=== PATIENT | female | born 1975 | race Caucasian/White ===

== ENCOUNTER 2017-02-05 11:01 | Emergency (ER) | payer MEDICAID ==
[2017-02-05 11:11] VITALS: BMI 28.0
[2017-02-05 11:12] VITALS: RESP 18; TEMP 98.4
[2017-02-05] MEDS ORDERED: Lidocaine 5% Patch TD STA (11:45)
[2017-02-05] MEDS ORDERED: Dexamethasone 4 mg/1 ml IM STA (11:45)
[2017-02-05] MEDS ORDERED: Lidocaine 5% Patch TD ONE (11:54)
--- NOTE | 2017-02-05 11:56 | C.PDOC ---
History Of Present Illness 42 year old female with a history of chronic back and neck problems, presents to the ED with complaints of upper back pain for the past week. Patient states she took Tramadol and Flexeril with no relief and denies fall, trauma, chest pain, abdominal pain, numbness, weakness, or any other complaints at this time. Time Seen by Provider: 02/05/17 11:26 Chief Complaint (Nursing): Back Pain History Per: Patient History/Exam Limitations: no limitations Onset/Duration Of Symptoms: Days Current Symptoms Are (Timing): Still Present Quality Of Discomfort: "Pain" Severity: Mild Previous Symptoms: Back Pain Associated Symptoms: None. denies: Incontinence, New Weakness, New Numbness Exacerbating Factor(s): Turning, Movement Past Medical History Reviewed: Historical Data, Nursing Documentation, Vital Signs Vital Signs: Last Vital Signs Temp 98.4 F 02/05/17 11:11 Pulse 60 02/05/17 12:54 Resp 18 02/05/17 12:54 BP 115/72 02/05/17 12:54 Pulse Ox 100 02/05/17 12:54 - Medical History PMH: Anemia, Asthma, HTN, Hyperthyroidism, Hypothyroidism Surgical History: Family History: States: Hypertension - Social History Hx Tobacco Use: Yes Hx Alcohol Use: Yes Hx Substance Use: No - Immunization History Hx Tetanus Toxoid Vaccination: Yes Hx Influenza Vaccination: Yes (06/2015) Hx Pneumococcal Vaccination: No Review Of Systems Except As Marked, All Systems Reviewed And Found Negative. Constitutional: Negative for: Fever, Chills Cardiovascular: Negative for: Chest Pain Respiratory: Negative for: Shortness of Breath Gastrointestinal: Negative for: Nausea, Vomiting, Abdominal Pain Musculoskeletal: Positive for: Back Pain Neurological: Negative for: Weakness, Numbness Physical Exam - Physical Exam Appears: Non-toxic, No Acute Distress Skin: Normal Color, Warm, Dry Head: Atraumatic, Normacephalic Eye(s): bilateral: Normal Inspection Oral Mucosa: Moist Neck: Normal ROM, Paracervical Tenderness (+Right paracervical tenderness), Supple Chest: Symmetrical Cardiovascular: Rhythm Regular, No Friction Rub, No Murmur Respiratory: Normal Breath Sounds, No Accessory Muscle Use, No Rales, No Rhonchi , No Wheezing Gastrointestinal/Abdominal: Normal Exam, Soft, No Tenderness Back: No CVA Tenderness, No Vertebral Tenderness, Paraspinal Tenderness (+Right parathoracic tenderness) Extremity: Normal ROM, No Swelling Neurological/Psych: Oriented x3, Normal Speech, Normal Cognition, Normal Motor Gait: Steady ED Course And Treatment O2 Sat by Pulse Oximetry: 99 (Room air) Pulse Ox Interpretation: Normal Medical Decision Making Medical Decision Making: Patient treated with Decadron, Toradol, and Lidoderm patch. On re-exam, the patient reports improvement of symptoms. Ambulatory in the ED with steady gait. Lungs are CTA, heart is RRR, abdomen is soft, non-tender and tolerating PO well. Disposition - Disposition Referrals: Eric Carreon MD [Medical Doctor] - Disposition: HOME/ ROUTINE Disposition Time: 13:00 Condition: STABLE Additional Instructions: Follow up with the medical doctor within 1-2 days. 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 - Scribe Statement The provider has reviewed the documentation as recorded by the Scribe Geo castro. All medical record entries made by the Scribe were at my direction and personally dictated by me. I have reviewed the chart and agree that the record accurately reflects my personal performance of the history, physical exam, medical decision making, and the department course for this patient. I have also personally directed, reviewed, and agree with the discharge instructions and disposition.
[2017-02-05 12:55] VITALS: BP 115/72; PULSE 60
[2017-02-06 00:05] VITALS: O2SAT 99
== END 2017-02-05 13:07 | disposition home or self-care (01) ==
LOC: C.ER 11:01
DX: S29.012A Strain of muscle and tendon of back wall of thorax, initial encounter (principal); X58.XXXA Exposure to other specified factors, initial encounter; Y93.9 Activity, unspecified; Y92.9 Unspecified place or not applicable
CPT/HCPCS: 96372; 99284; J1100; J1885

== ENCOUNTER 2017-10-01 12:48 | Emergency (ER) | payer MEDICAID ==
[2017-10-01 12:48] VITALS: BMI 28.0
[2017-10-01 13:14] VITALS: TEMP 98; O2SAT 98
[2017-10-01] MEDS ORDERED: Albuterol 0.083% Inhal Sol (2.5 mg/3 mL) UD IH STA (13:21)
[2017-10-01] MEDS ORDERED: Albuterol 0.083% Inhal Sol (2.5 mg/3 mL) UD ONE (13:31)
[2017-10-01] MEDS ORDERED: Apap-Butalbital-Caffeine 325-50-40mg Tab PO STA (13:33)
[2017-10-01] MEDS ORDERED: Apap-Butalbital-Caffeine 325-50-40mg Tab ONE (13:41)
--- NOTE | 2017-10-01 13:56 | C.PDOC ---
History Of Present Illness 42 y/o female presents to ED for evaluation of productive cough with yellow sputum, shortness of breath, and wheezing for the past week. Notes using Albuterol at home without relief. Pt also complains of left sided headache which feels similar to her previous migraines. Denies dizziness, chest pain, or fever. Time Seen by Provider: 10/01/17 13:02 Chief Complaint (Nursing): Cough, Cold, Congestion History Per: Patient History/Exam Limitations: no limitations Onset/Duration Of Symptoms: Days Current Symptoms Are (Timing): Still Present Location Of Pain: Headache Sick Contacts (Context): Family Member(s) (daughter) Associated Symptoms: Cough, Sputum. denies: Neck Pain, Sinus Drainage, Myalgias , Nausea, Vomiting, Diarrhea Ear Symptoms: Bilateral: None Past Medical History Reviewed: Historical Data, Nursing Documentation, Vital Signs Vital Signs: Last Vital Signs Temp 98 F 10/01/17 13:08 Pulse 82 10/01/17 13:08 Resp 18 10/01/17 13:08 BP 103/67 10/01/17 13:08 Pulse Ox 98 10/01/17 14:03 - Medical History PMH: Anemia, Asthma, HTN, Hyperthyroidism, Hypothyroidism Surgical History: Family History: States: Hypertension - Social History Hx Tobacco Use: Yes Hx Alcohol Use: Yes Hx Substance Use: No - Immunization History Hx Tetanus Toxoid Vaccination: Yes Hx Influenza Vaccination: Yes (06/2015) Hx Pneumococcal Vaccination: No Review Of Systems Except As Marked, All Systems Reviewed And Found Negative. Constitutional: Negative for: Fever, Chills Cardiovascular: Negative for: Chest Pain Respiratory: Positive for: Cough, Shortness of Breath, Sputum, Wheezing Gastrointestinal: Negative for: Nausea, Vomiting Neurological: Positive for: Headache. Negative for: Weakness, Numbness, Dizziness Physical Exam - Physical Exam Appears: Non-toxic, No Acute Distress Skin: Normal Color, Warm, Dry Head: Atraumatic, Normacephalic Eye(s): bilateral: Normal Inspection Ear(s): Bilateral: Normal Nose: Normal Oral Mucosa: Moist Throat: Normal, No Erythema, No Exudate Neck: Supple Chest: Symmetrical Cardiovascular: Rhythm Regular, No Murmur Respiratory: No Accessory Muscle Use, No Rales, No Rhonchi, Wheezing (mild expiratory wheezing bilaterally), Other (pt speaking in full sentences, occasional cough) Extremity: Normal ROM, No Pedal Edema Neurological/Psych: Oriented x3, Normal Speech ED Course And Treatment O2 Sat by Pulse Oximetry: 98 (RA) Pulse Ox Interpretation: Normal Progress Note: CXR ordered and reviewed. Pt was given Prednisone, Fioricet, and nebulizer treatment. On reassessment, patient is resting comfortably with no chest pain, or retractions. Breath sounds have improved. Patient is alert and oriented x 3. Patient was advised to follow up with physician/clinic in 1- 2 days and return to ED if symptoms worsen or persist. Disposition Counseled Patient/Family Regarding: Studies Performed, Diagnosis, Need For Followup, Rx Given - Disposition Referrals: Jayden Camacho [Staff Provider] - Disposition: HOME/ ROUTINE Disposition Time: 14:10 Condition: STABLE Additional Instructions: SEGUIMIENTO CON FAGAN MDICO EN 1-2 DUNNE USE MEDICAMENTOS SEGN LO INDICADO REGRESE AL PITO DE EMERGENCIA SI LOS SNTOMAS EMPEORAN Prescriptions: Albuterol HFA [Ventolin HFA 90 mcg/actuation (8 g)] 0.09 mg IH Q4 PRN #1 puff PRN Reason: Wheezing Benzonatate [Tessalon Perles] 100 mg PO BID PRN #15 sgl PRN Reason: Cough predniSONE [predniSONE Tab] 40 mg PO DAILY #8 tab Instructions: Asthma (ED), Acute Bronchitis (ED) Forms: [employer] (Mohawk) Print Language: LUXEMBOURGISH - POA Present On Arrival: None - Clinical Impression Clinical Impression: Bronchitis, Asthma - Scribe Statement The provider has reviewed the documentation as recorded by the Hernanibhimanshu Kaufman All medical record entries made by the Scribe were at my direction and personally dictated by me. I have reviewed the chart and agree that the record accurately reflects my personal performance of the history, physical exam, medical decision making, and the department course for this patient. I have also personally directed, reviewed, and agree with the discharge instructions and disposition.
[2017-10-01] MEDS ORDERED: Naproxen 550 mg Tab PO STA (14:16)
--- NOTE | 2017-10-01 14:19 | RAD ---
HISTORY: COUGH, SOB COMPARISON: 01/14/2015 TECHNIQUE: Chest PA and lateral FINDINGS: LUNGS: Mild venous congestion. Small nodular density projecting over the right upper lung may represent a small granuloma and or nodule. This is stable since the prior study. PLEURA: No significant pleural effusion identified. No pneumothorax apparent. CARDIOVASCULAR: Normal. OSSEOUS STRUCTURES: No significant abnormalities. VISUALIZED UPPER ABDOMEN: Normal. OTHER FINDINGS: None. IMPRESSION: Mild venous congestion. Small nodular density projecting over the right upper lung may represent a small granuloma and or nodule. This is stable since the prior study.
[2017-10-01] MEDS ORDERED: Naproxen 550 mg Tab PO ONE (14:20)
[2017-10-01 14:21] VITALS: BP 110/70; PULSE 75; RESP 20
== END 2017-10-01 14:35 | disposition home or self-care (01) ==
LOC: C.ER 12:48
DX: J45.909 Unspecified asthma, uncomplicated (principal); I10 Essential (primary) hypertension; Z87.891 Personal history of nicotine dependence

== ENCOUNTER 2017-11-09 09:09 | Emergency (ER) | payer MEDICAID ==
[2017-11-09 09:09] VITALS: BMI 28.0
--- NOTE | 2017-11-09 11:05 | C.PDOC ---
History Of Present Illness 42 y/o female hx of 2 day fever, sore , throat, non productive cough, body aches, and back pain from the cough. The patient notes feeling warm but has not taken temperature. The patient denies chills, sweats, and dizziness. Time Seen by Provider: 11/09/17 09:40 Chief Complaint (Nursing): ENT Problem History Per: Patient Onset/Duration Of Symptoms: Days Current Symptoms Are (Timing): Still Present Associated Symptoms: Fever, Sore Throat, Cough Past Medical History Reviewed: Historical Data, Nursing Documentation, Vital Signs Vital Signs: Last Vital Signs Temp 99.2 F 11/09/17 11:17 Pulse 97 H 11/09/17 11:17 Resp 18 11/09/17 11:16 BP 148/89 11/09/17 11:17 Pulse Ox 99 11/09/17 11:56 - Medical History PMH: Anemia, Asthma, HTN, Hyperthyroidism, Hypothyroidism Surgical History: Family History: States: No Known Family Hx, Hypertension - Social History Hx Tobacco Use: Yes Hx Alcohol Use: Yes Hx Substance Use: No - Immunization History Hx Tetanus Toxoid Vaccination: Yes Hx Influenza Vaccination: Yes (03/2017) Hx Pneumococcal Vaccination: No Review Of Systems Except As Marked, All Systems Reviewed And Found Negative. Constitutional: Positive for: Fever. Negative for: Chills ENT: Positive for: Throat Pain Cardiovascular: Negative for: Chest Pain Respiratory: Positive for: Cough (nonproductive ) Gastrointestinal: Negative for: Nausea, Vomiting Physical Exam - Physical Exam Appears: Non-toxic, No Acute Distress Skin: Warm, Dry Head: Atraumatic, Normacephalic Oral Mucosa: Moist Throat: Erythema (tonsillar), No Exudate Neck: Supple Chest: Symmetrical Cardiovascular: Rhythm Regular Extremity: Normal ROM, Capillary Refill (2<sec.) Neurological/Psych: Oriented x3, Normal Speech, Normal Cognition Gait: Steady ED Course And Treatment O2 Sat by Pulse Oximetry: 99 (RA) Progress Note: The patient is afebrile and positive for bronchitis. The patient is RX zithromax,naprocilin. The patient is advised if symptoms worsens to return to the [facility] [place] for further evaluation. Disposition Counseled Patient/Family Regarding: Diagnosis, Need For Followup, Rx Given - Disposition Referrals: [facility] [Outside] Disposition: HOME/ ROUTINE Disposition Time: 11:03 Condition: STABLE Additional Instructions: follow up with medical clinic or your doctor in 2 days call to make an appointment take medications as prescribed return to hospital if symptoms worsens or progress Prescriptions: Azithromycin [Zithromax] 250 mg PO DAILY #4 tab Naproxen [Naprosyn] 500 mg PO BID PRN #16 tab PRN Reason: Pain, Moderate (4-7) Instructions: Acute Bronchitis (ED) Forms: [facility] (Lao), General Discharge Instructions - Clinical Impression Clinical Impression: Pharyngitis, Bronchitis - Scribe Statement The provider has reviewed the documentation as recorded by the Scribe Reyna Webster
[2017-11-09 11:18] VITALS: BP 148/89; PULSE 97; RESP 18; TEMP 99.2
[2017-11-09 11:54] VITALS: O2SAT 99
== END 2017-11-09 11:17 | disposition home or self-care (01) ==
LOC: C.ER 09:09
DX: J40 Bronchitis, not specified as acute or chronic (principal); J02.9 Acute pharyngitis, unspecified; I10 Essential (primary) hypertension; E03.9 Hypothyroidism, unspecified; Z87.891 Personal history of nicotine dependence

== ENCOUNTER 2018-01-02 10:56 | Emergency (ER) | payer MEDICAID ==
[2018-01-02 10:56] VITALS: BMI 28.0
[2018-01-02 11:28] VITALS: RESP 18
[2018-01-02] MEDS ORDERED: Amoxicillin 250 mg/5 ml Susp (100 ml) ONE (12:30)
--- NOTE | 2018-01-02 12:48 | C.PDOC ---
History Of Present Illness 42 y/o female presents to ED with complaints of right sided back pain radiating to right leg for 1 week. Patient reports temporary relief with Codeine Tylenol and denies trauma, injury, weakness, numbness, bowel/bladder incontinence, abdominal pain or any other complaints at this time. Time Seen by Provider: 01/02/18 12:06 Chief Complaint (Nursing): Back Pain History Per: Patient History/Exam Limitations: no limitations Onset/Duration Of Symptoms: Days Current Symptoms Are (Timing): Still Present Quality Of Discomfort: "Pain" Past Medical History Reviewed: Historical Data, Nursing Documentation, Vital Signs Vital Signs: Last Vital Signs Temp 99.1 F 01/02/18 11:24 Pulse 85 01/02/18 11:24 Resp 18 01/02/18 11:24 BP 122/82 01/02/18 11:24 Pulse Ox 100 01/02/18 12:49 - Medical History PMH: Anemia, Asthma, HTN, Hyperthyroidism, Hypothyroidism Surgical History: No Surg Hx, Family History: States: Hypertension - Social History Hx Tobacco Use: Yes Hx Alcohol Use: Yes Hx Substance Use: No - Immunization History Hx Tetanus Toxoid Vaccination: Yes Hx Influenza Vaccination: Yes (03/2017) Hx Pneumococcal Vaccination: No Review Of Systems Except As Marked, All Systems Reviewed And Found Negative. Musculoskeletal: Positive for: Back Pain, Leg Pain Physical Exam - Physical Exam Appears: Non-toxic, No Acute Distress Skin: Warm, Dry, No Rash Head: Atraumatic, Normacephalic Oral Mucosa: Moist Neck: Normal ROM, Supple Cardiovascular: Rhythm Regular Respiratory: Normal Breath Sounds, No Rales, No Rhonchi, No Wheezing Gastrointestinal/Abdominal: Soft, No Tenderness, No Guarding, No Rebound Back: No CVA Tenderness, Straight Leg Raising (at 30 degrees to right leg), Other (Right paralumbar tenderness. Right gluetal region tenderness) Extremity: Normal ROM, Capillary Refill (<2 seconds), No Deformity, No Swelling Pulses: Left Dorsalis Pedis: Normal, Right Dorsalis Pedis: Normal Neurological/Psych: Oriented x3, Normal Motor, Normal Sensation ED Course And Treatment O2 Sat by Pulse Oximetry: 100 (RA) Pulse Ox Interpretation: Normal Medical Decision Making Medical Decision Making: Assessment: Sciatica Disposition Counseled Patient/Family Regarding: Studies Performed, Diagnosis, Need For Followup, Rx Given - Disposition Referrals: [facility] [Outside] [facility] [Outside] Disposition Time: 13:15 Condition: STABLE Additional Instructions: follow up with your doctor in 2 days call to make an appointment take medications as prescribed return to ED if symptoms worsens or progress Prescriptions: Cyclobenzaprine [Cyclobenzaprine HCl] 10 mg PO TID PRN #12 tab PRN Reason: Muscle Spasm Naproxen [Naprosyn] 500 mg PO BID PRN #16 tab PRN Reason: Pain, Moderate (4-7) Instructions: Sciatica Forms: Gen Discharge Inst Hungarian, [employer] [facility] (Hungarian) Print Language: MACEDONIAN - Clinical Impression Clinical Impression: Sciatica - Scribe Statement The provider has reviewed the documentation as recorded by the Pascale Chavis All medical record entries made by the Hernanibhimanshu were at my direction and personally dictated by me. I have reviewed the chart and agree that the record accurately reflects my personal performance of the history, physical exam, medical decision making, and the department course for this patient. I have also personally directed, reviewed, and agree with the discharge instructions and disposition.
--- NOTE | 2018-01-02 13:06 | RAD ---
PROCEDURE: Radiographs of the Lumbar Spine. HISTORY: back pain COMPARISON: None available. FINDINGS: BONES: Alignment appears satisfactory. No listhesis. No acute displaced fracture identified. Mild degenerative changes including small osteophyte formation. DISC SPACES: Unremarkable. OTHER FINDINGS: Atherosclerotic calcifications of the aorta. Partially imaged constipation. IMPRESSION: No acute displaced fracture or subluxation identified.
[2018-01-02 13:54] VITALS: BP 102/68; PULSE 86; TEMP 99.2; O2SAT 99
== END 2018-01-02 13:54 | disposition home or self-care (01) ==
LOC: C.ER 10:56
DX: M54.30 Sciatica, unspecified side (principal)

== ENCOUNTER 2018-03-06 08:03 | Emergency (ER) | payer MEDICAID ==
[2018-03-06 08:03] VITALS: BMI 28.0
[2018-03-06 08:19] VITALS: RESP 18
[2018-03-06 09:21] LABS: BASO % 0.6 % (0.0-2.0); EOS % 0.6 % (0.0-4.0); HEMOGLOBIN 12.7 g/dL (11.0-16.0); LYMPH # 1.5 K/uL (1.0-4.3); LYMPH % 25.8 % (20.0-40.0); MEAN CELL VOLUME 86.1 fL (81.0-99.0); MEAN CORPUSCULAR HEMOGLOBIN 29.4 pg (27.0-31.0); MEAN CORPUSCULAR HGB CONC 34.1 g/dL (33.0-37.0); MEAN PLATELET VOLUME 7.1 fL (7.2-11.7); MONO # 0.4 K/uL (0.0-0.8); MONO % 6.9 % (0.0-10.0); NEUT # 3.9 K/uL (1.8-7.0); NEUT % 66.1 % (50.0-75.0); RBC 4.31 Mil/uL (3.80-5.20); RED CELL DISTRIBUTION WIDTH 15.1 % (11.5-14.5); WHITE BLOOD COUNT 5.9 K/uL (4.8-10.8)
[2018-03-06 09:36] LABS: ALBUMIN 4.5 g/dL (3.5-5.0); ALT/SGPT 21 U/L (9-52); AST/SGOT 27 U/L (14-36); BLOOD UREA NITROGEN 15 mg/dL (7-17); CALCIUM 9.3 mg/dl (8.6-10.4); GFR AFRICAN-AMERICAN > 60; GFR NON-AFRICAN AMERICAN > 60
[2018-03-06 09:38] LABS: SQUAMOUS EPITHIAL 3 /hpf (0-5); URINE BILIRUBIN NEGATIVE (NEGATIVE); URINE BLOOD 1+ (NEGATIVE); URINE CLARITY Clear (Clear); URINE COLOR Yellow (YELLOW); URINE GLUCOSE (UA) NORMAL (Normal); URINE LEUKOCYTE ESTERASE NEG Leu/uL (Negative); URINE PROTEIN NEGATIVE (NEGATIVE); URINE UROBILINOGEN NORMAL mg/dL (0.2-1.0)
--- NOTE | 2018-03-06 09:44 | RAD ---
Chest x-ray single frontal view History: Chest pain. Comparison: 10/01/2017 Findings: Small nodule and or granuloma at the right lung apex. Mild venous congestion. Right hilar prominence. Bibasilar breast shadows. Heart size within normal limits. Degenerative changes in the spine. Impression: Small nodule and or granuloma at the right lung apex. Mild venous congestion. Right hilar prominence. Bibasilar breast shadows.
--- NOTE | 2018-03-06 10:01 | C.PDOC ---
History Of Present Illness 43-year-old female, presents to the emergency department with complaints of sharp chest pain, that worsens with deep breaths, started last night. Patient denies any associated injury or cough. She has a Hx of hypertension and smoking. Time Seen by Provider: 03/06/18 08:34 Chief Complaint (Nursing): Chest Pain History Per: Patient History/Exam Limitations: no limitations Past Medical History Reviewed: Historical Data, Nursing Documentation, Vital Signs Vital Signs: Last Vital Signs Temp 98.0 F 03/06/18 10:04 Pulse 72 03/06/18 10:04 Resp 18 03/06/18 10:04 BP 103/60 03/06/18 10:04 Pulse Ox 100 03/06/18 13:10 - Medical History PMH: Anemia, Asthma, HTN, Hyperthyroidism, Hypothyroidism Surgical History: Family History: States: No Known Family Hx, Hypertension - Social History Hx Tobacco Use: Yes Hx Alcohol Use: Yes Hx Substance Use: No - Immunization History Hx Tetanus Toxoid Vaccination: Yes Hx Influenza Vaccination: Yes (03/2017) Hx Pneumococcal Vaccination: No Review Of Systems Constitutional: Negative for: Fever Cardiovascular: Positive for: Chest Pain Respiratory: Positive for: Pleuritic Pain. Negative for: Cough Gastrointestinal: Negative for: Nausea, Vomiting Musculoskeletal: Negative for: Back Pain Skin: Negative for: Rash Neurological: Negative for: Weakness, Numbness, Headache, Dizziness Physical Exam - Physical Exam Appears: Non-toxic, No Acute Distress Skin: Normal Color, Warm, Dry, No Rash Head: Normacephalic Eye(s): bilateral: PERRL Nose: Normal Oral Mucosa: Moist Lips: Normal Appearing Neck: Normal ROM Chest: Symmetrical, Tenderness Cardiovascular: Rhythm Regular, No Murmur Respiratory: Normal Breath Sounds, No Accessory Muscle Use Extremity: Normal ROM, No Deformity, No Swelling Neurological/Psych: Oriented x3, Normal Speech ED Course And Treatment - Laboratory Results Result Diagrams: 03/06/18 09:13 03/06/18 09:13 ECG: Interpreted By Me, Viewed By Me ECG Rhythm: Sinus Rhythm ECG Interpretation: No Acute Changes Interpretation Of ECG: left atrial enlargement. Rate From EC O2 Sat by Pulse Oximetry: 100 (RA) Pulse Ox Interpretation: Normal Medical Decision Making Medical Decision Making: atypical chest pain - patient heart score is 1, she states improvement, negative troponin x 2, will discharge patient home to follow up with pmd in 2 days Disposition Counseled Patient/Family Regarding: Studies Performed, Diagnosis, Need For Followup, Rx Given - Disposition Referrals: Jayden Camacho [Staff Provider] - Disposition: HOME/ ROUTINE Disposition Time: 13:08 Condition: STABLE Additional Instructions: follow up with your doctor in 2 days call to make an appointment take medications as needed for pain return to ER if symptoms worsens or progress Prescriptions: Naproxen [Naprosyn] 500 mg PO BID PRN #16 tab PRN Reason: Pain, Moderate (4-7) Instructions: Chest Pain (DC), Costochondritis (DC) Forms: Gen Discharge Inst Estonian, [employer] [facility] (Estonian), Work Excuse Print Language: WELSH - Clinical Impression Clinical Impression: Chest discomfort - Scribe Statement The provider has reviewed the documentation as recorded by the Scribe (Erica Garza)
[2018-03-06 13:22] VITALS: BP 120/74; PULSE 62; TEMP 98.5; O2SAT 99
--- NOTE | 2018-03-07 21:58 | CARD ---
APPROVED REPORT EKG Measurement Heart [id number] <Conclusion> Normal sinus rhythm Possible Left atrial enlargement Non specific ST & T wave abnormality Abnormal ECG
== END 2018-03-06 13:51 | disposition home or self-care (01) ==
LOC: C.ER 08:03
DX: R07.89 Other chest pain (principal); I10 Essential (primary) hypertension; Z72.0 Tobacco use
CPT/HCPCS: 71045; 80053; 81001; 82550; 84484; 85025; 85378; 93005; 96374; 99285; J1885

== ENCOUNTER 2018-03-13 08:28 | Emergency (ER) | payer MEDICAID ==
[2018-03-13 08:28] VITALS: BMI 28.0
[2018-03-13 08:34] VITALS: BP 117/78; PULSE 91; RESP 18; TEMP 98.7; O2SAT 100
--- NOTE | 2018-03-13 08:53 | C.PDOC ---
History Of Present Illness 43yo female, presents to ER with complaints of a sore throat for the past 3 days. She states the pain is present with swallowing and has been progressively worsening. She reports a low grade fever last night with Tmax of 101F; states she took tylenol for her symptoms with minimal relief. She denies any known sick contacts, cough, chest pain, shortness of breath. No other complaints. Time Seen by Provider: 03/13/18 08:43 Chief Complaint (Nursing): ENT Problem History Per: Patient History/Exam Limitations: None Onset/Duration Of Symptoms: Days Current Symptoms Are (Timing): Still Present Symptoms Have Been: Continuous Past Medical History Reviewed: Historical Data, Nursing Documentation, Vital Signs Vital Signs: Last Vital Signs Temp 98.7 F 03/13/18 08:31 Pulse 91 H 03/13/18 08:31 Resp 18 03/13/18 08:31 BP 117/78 03/13/18 08:31 Pulse Ox 100 03/13/18 10:30 - Medical History PMH: Anemia, Asthma, HTN, Hyperthyroidism, Hypothyroidism Surgical History: Family History: States: Hypertension - Social History Hx Tobacco Use: Yes Hx Alcohol Use: Yes Hx Substance Use: No - Immunization History Hx Tetanus Toxoid Vaccination: Yes Hx Influenza Vaccination: Yes (03/2017) Hx Pneumococcal Vaccination: No Review Of Systems Except As Marked, All Systems Reviewed And Found Negative. Constitutional: Positive for: Fever ENT: Positive for: Throat Pain Cardiovascular: Negative for: Chest Pain Respiratory: Negative for: Cough, Shortness of Breath Physical Exam - Physical Exam Appears: Non-toxic, No Acute Distress Skin: Warm, Dry, No Rash Head: Atraumatic, Normacephalic Eye(s): bilateral: Normal Inspection, PERRL, EOMI Ear(s): Bilateral: Normal Oral Mucosa: Moist Throat: Erythema, Exudate (right), No Drooling, No Mass, Other (uvual midline, no signs of peritonsilar abscess) Neck: Normal ROM, Supple Chest: Symmetrical Cardiovascular: Rhythm Regular Respiratory: Normal Breath Sounds, No Wheezing Gastrointestinal/Abdominal: Normal Exam, Soft, No Tenderness Extremity: Bilateral: Atraumatic, Normal ROM Neurological/Psych: Oriented x3, Normal Speech ED Course And Treatment O2 Sat by Pulse Oximetry: 100 (RA) Pulse Ox Interpretation: Normal Medical Decision Making Medical Decision Making: Impression: Sore throat Plan: Patient with complaints of sore throat and exam shows erythema and exudates; no signs of peritonsilar abscess. Will treat with Amoxil. Patient instructed to take medications as prescribed and to follow up with PCP in 2-3 days. Disposition Counseled Patient/Family Regarding: Diagnosis, Need For Followup, Rx Given - Disposition Referrals: Eric Carreon MD [Medical Doctor] - Disposition: HOME/ ROUTINE Disposition Time: 08:53 Condition: GOOD Additional Instructions: Rx sent to [facility] Take Tylenol or Motrin alternating every 4-6 hours for Fever 100.4F or higher. Rest and drink plenty of fluids to prevent dehydration. May also try lozenges or cepacol spary over the counter. Rx enviado a la farmacia de [facility] [place] Tylenol o Motrin alternando cada 4-6 horas para Fiebre 100.4F o superior. Descansa y janine muchos lquidos para prevenir la deshidratacin. Tambin puede probar pastillas o cepacol spary en [facility]. Prescriptions: Amoxicillin [Amoxil 500 mg Cap] 500 mg PO BID #20 cap Instructions: Sore Throat, Adult (DC) Forms: [employer] (Turkmen) Print Language: PERUVIAN - POA Present On Arrival: None - Clinical Impression Clinical Impression: Pharyngitis - PA / LAYOUT ARTIST / Resident Statement MD/DO has reviewed & agrees with the documentation as recorded. - Scribe Statement The provider has reviewed the documentation as recorded by the Scribe (Rylie Mckeon) Provider Attestation: All medical record entries made by the Hernanibhimanshu were at my direction and personally dictated by me. I have reviewed the chart and agree that the record accurately reflects my personal performance of the history, physical exam, medical decision making, and the department course for this patient. I have also personally directed, reviewed, and agree with the discharge instructions and disposition.
== END 2018-03-13 09:03 | disposition home or self-care (01) ==
LOC: C.ER 08:28
DX: J02.9 Acute pharyngitis, unspecified (principal); F17.210 Nicotine dependence, cigarettes, uncomplicated

== ENCOUNTER 2018-04-10 18:00 | Emergency (ER) | payer MEDICAID ==
[2018-04-10 18:00] VITALS: BMI 28.0
--- NOTE | 2018-04-10 19:16 | C.PDOC ---
History Of Present Illness 43 year old female presents to the ED c/o generalized abdominal pain with associated non-bloody diarrhea starting earlier today. She has not taken any medications for her symptoms. Daughter also has similar symptoms and being evaluated in ED. Denies any fever, nausea, or vomiting. Time Seen by Provider: 04/10/18 18:32 Chief Complaint (Nursing): Abdominal Pain History Per: Patient History/Exam Limitations: no limitations Onset/Duration Of Symptoms: Hrs Current Symptoms Are (Timing): Still Present Severity: None Location Of Pain/Discomfort: Diffuse Radiation Of Pain To:: None Quality Of Discomfort: "Pain" Associated Symptoms: Diarrhea, Other (weakness) Exacerbating Factors: None Alleviating Factors: None Last Bowel Movement: Today Recent travel outside of the [place]: No Additional History Per: Patient Abnormal Vaginal Bleeding: No Past Medical History Reviewed: Historical Data, Nursing Documentation, Vital Signs Vital Signs: Last Vital Signs Temp 98 F 04/10/18 19:53 Pulse 74 04/10/18 19:53 Resp 20 04/10/18 19:53 BP 100/60 04/10/18 19:53 Pulse Ox 99 04/10/18 21:09 - Medical History PMH: Anemia, Asthma, HTN, Hyperthyroidism, Hypothyroidism Surgical History: Family History: States: Hypertension - Social History Hx Tobacco Use: Yes Hx Alcohol Use: Yes Hx Substance Use: No - Immunization History Hx Tetanus Toxoid Vaccination: Yes Hx Influenza Vaccination: Yes (03/2017) Hx Pneumococcal Vaccination: No Review Of Systems Constitutional: Positive for: Weakness. Negative for: Fever, Chills Cardiovascular: Negative for: Chest Pain, Palpitations Respiratory: Negative for: Cough, Shortness of Breath Gastrointestinal: Positive for: Diarrhea Musculoskeletal: Negative for: Back Pain Neurological: Positive for: Weakness. Negative for: Numbness Physical Exam - Physical Exam Appears: Non-toxic, No Acute Distress Skin: Normal Color, Warm, Dry Head: Atraumatic, Normacephalic Eye(s): bilateral: Normal Inspection Oral Mucosa: Moist Neck: Normal ROM, Supple Chest: Symmetrical Cardiovascular: Rhythm Regular Respiratory: Normal Breath Sounds, No Rales, No Rhonchi, No Wheezing Gastrointestinal/Abdominal: Soft, No Tenderness, No Guarding, No Rebound Extremity: Normal ROM, No Tenderness, No Swelling Neurological/Psych: Oriented x3, Normal Speech Gait: Steady ED Course And Treatment O2 Sat by Pulse Oximetry: 99 (ON RA) Pulse Ox Interpretation: Normal Medical Decision Making Medical Decision Making: Impression: diarrhea Plan: * Pepcid 20 mg PO Patient remained afebrile alert and oriented with stable vital signs during ER evaluation. No clinical signs of dehydration. Patient given follow up instructions. Instructed to return to ER if symptoms worsen or new symptoms arise. Disposition Counseled Patient/Family Regarding: Diagnosis, Need For Followup, Rx Given - Disposition Referrals: Eric Carreon MD [Medical Doctor] - Disposition: HOME/ ROUTINE Disposition Time: 19:15 Condition: STABLE Additional Instructions: Give fluids to prevent dehydration. Try low-fat diet with increase in fluids such as sport drink, gelatin. Try soup, rice, bread, crackers, cereal, bananas to help with diarrhea. 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 - Scribe Statement The provider has reviewed the documentation as recorded by the Scribe Mckinley Canseco All medical record entries made by the Hernanibhimanshu were at my direction and personally dictated by me. I have reviewed the chart and agree that the record accurately reflects my personal performance of the history, physical exam, medical decision making, and the department course for this patient. I have also personally directed, reviewed, and agree with the discharge instructions and disposition.
[2018-04-10 19:55] VITALS: BP 100/60; PULSE 74; RESP 20; TEMP 98
[2018-04-10 20:44] VITALS: O2SAT 99
== END 2018-04-10 19:55 | disposition home or self-care (01) ==
LOC: C.ER 18:00
DX: R19.7 Diarrhea, unspecified (principal)

== ENCOUNTER 2018-06-09 10:03 | Emergency (ER) | payer MEDICAID ==
[2018-06-09 10:03] VITALS: BMI 28.0
[2018-06-09 10:11] VITALS: BP 112/63; RESP 18
[2018-06-09] MEDS ORDERED: Albuterol-Ipratrop 3 mg / 0.5 (3 ml) UD INH STA ×2 (10:51→11:11)
--- NOTE | 2018-06-09 10:53 | C.PDOC ---
History Of Present Illness 43 year old female presents to the ER complaining of dried non-productive cough for a week. Patient notes that she ran out of her liquid albuterol. Patient states that she does not have wheezing or coughing at the moment and is in no distress. Patient denies SOB and chest pain. Time Seen by Provider: 06/09/18 10:46 Chief Complaint (Nursing): Cough, Cold, Congestion History Per: Patient History/Exam Limitations: no limitations Onset/Duration Of Symptoms: Days Current Symptoms Are (Timing): Gone Associated Symptoms: Cough, Other (wheezing). denies: Chest Pain - Asthma History Medication Use: Ran Out Past Medical History Reviewed: Historical Data, Nursing Documentation, Vital Signs Vital Signs: Last Vital Signs Temp 98 F 06/09/18 11:29 Pulse 87 06/09/18 11:29 Resp 18 06/09/18 11:29 BP 112/63 06/09/18 10:09 Pulse Ox 97 06/09/18 11:29 - Medical History PMH: Anemia, Asthma, HTN, Hyperthyroidism, Hypothyroidism Surgical History: Family History: States: Hypertension - Social History Hx Tobacco Use: Yes Hx Alcohol Use: Yes Hx Substance Use: No - Immunization History Hx Tetanus Toxoid Vaccination: Yes Hx Influenza Vaccination: Yes (03/2017) Hx Pneumococcal Vaccination: No Review Of Systems Except As Marked, All Systems Reviewed And Found Negative. Cardiovascular: Negative for: Chest Pain Respiratory: Positive for: Cough, Wheezing. Negative for: Shortness of Breath Physical Exam - Physical Exam Appears: Well, Non-toxic, No Acute Distress Skin: Normal Color, Warm, Dry Head: Atraumatic, Normacephalic Chest: Symmetrical, No Deformity Respiratory: Normal Breath Sounds, No Accessory Muscle Use, No Rales, No Rhonchi , No Wheezing, Other (NARD; poor MDI technique) Neurological/Psych: Oriented x3, Normal Speech Gait: Steady ED Course And Treatment O2 Sat by Pulse Oximetry: 100 (RA) Pulse Ox Interpretation: Normal Medical Decision Making Medical Decision Making: ran out of Duoneb- refilled poor MDI technique demonstrated with NO interest in learning proper technique Aerochamber Educated and prescribed. Disposition Doctor Will See Patient In The: Office Counseled Patient/Family Regarding: Studies Performed, Diagnosis - Disposition Referrals: Susan William MD [Staff Provider] - Disposition: HOME/ ROUTINE Disposition Time: 10:53 Condition: GOOD Additional Instructions: sigue tony tratemientos de Duoneb con DOS ampulas de liquido cada 4-6 horas sandra necessario Usa el Aerochamber Spacer (tubo plastico) para que la inhaladora funcciona mejor Sigue con quiroz medico sandra necessario y para rellenar tony medicamentos ANTES que se acaban. Prescriptions: Albuterol/Ipratropium [Duoneb 3 MG/3 Ml-0.5 MG/3 Ml 3 Ml] 6 ml IH Q4H PRN #100 neb PRN Reason: asthma Spacer, Inhalation [Aerochamber] 1 inh IH QID #1 dev Instructions: Asthma in Adults Forms: [facility] (Spanish) Print Language: SLOVENIAN - Clinical Impression Clinical Impression: Asthma - Scribe Statement The provider has reviewed the documentation as recorded by the Scribe Alisson Dodson Provider Attestation: All medical record entries made by the Scribe were at my direction and personally dictated by me. I have reviewed the chart and agree that the record accurately reflects my personal performance of the history, physical exam, medical decision making, and the department course for this patient. I have also personally directed, reviewed, and agree with the discharge instructions and disposition.
[2018-06-09] MEDS ORDERED: Albuterol-Ipratrop 3 mg / 0.5 (3 ml) UD ONE (11:11)
[2018-06-09 11:38] VITALS: PULSE 87; TEMP 98
[2018-06-09 12:23] VITALS: O2SAT 100
== END 2018-06-09 11:37 | disposition home or self-care (01) ==
LOC: C.ER 10:03
DX: J45.909 Unspecified asthma, uncomplicated (principal); F17.210 Nicotine dependence, cigarettes, uncomplicated

== ENCOUNTER 2019-04-08 10:08 | Emergency (ER) | payer MEDICAID ==
[2019-04-08 10:08] VITALS: BMI 28.0
[2019-04-08 10:13] VITALS: TEMP 99.2
[2019-04-08] MEDS ORDERED: Albuterol-Ipratrop 3 mg / 0.5 (3 ml) UD INH STA ×2 (10:57→11:49)
[2019-04-08] MEDS ORDERED: Albuterol-Ipratrop 3 mg / 0.5 (3 ml) UD ONE ×2 (11:09→12:16)
--- NOTE | 2019-04-08 12:21 | C.PDOC ---
History Of Present Illness 44 y/o. female with hx of asthma presents to the ED for asthma exacerbation and coughing. . Pt notes she ran out of her medications which prompted ED visit. Denies fever, chills, nausea, vomiting, and any other associated symptoms. Time Seen by Provider: 04/08/19 10:33 Chief Complaint (Nursing): Cough, Cold, Congestion History Per: Patient History/Exam Limitations: no limitations Onset/Duration Of Symptoms: Hrs Current Symptoms Are (Timing): Still Present Recent travel outside of the [place]: No Past Medical History Reviewed: Historical Data, Nursing Documentation, Vital Signs Vital Signs: Last Vital Signs Temp 99.2 F 04/08/19 10:09 Pulse 110 H 04/08/19 10:09 Resp 20 04/08/19 10:09 BP 121/75 04/08/19 10:09 Pulse Ox 99 04/08/19 10:09 Primary Care Provider: Jayden Camacho A - Medical History PMH: Anemia, Asthma, HTN, Hyperthyroidism, Hypothyroidism Surgical History: Family History: States: Hypertension - Social History Hx Tobacco Use: Yes Hx Alcohol Use: Yes Hx Substance Use: No - Immunization History Hx Tetanus Toxoid Vaccination: Yes Hx Influenza Vaccination: Yes (03/2017) Hx Pneumococcal Vaccination: No Review Of Systems Constitutional: Negative for: Fever, Chills ENT: Positive for: Nose Discharge, Nose Congestion. Negative for: Throat Pain Cardiovascular: Negative for: Chest Pain Respiratory: Positive for: Cough, Wheezing Gastrointestinal: Negative for: Nausea, Vomiting Physical Exam - Physical Exam Appears: Non-toxic, No Acute Distress Skin: Warm, Dry Head: Atraumatic, Normacephalic Eye(s): bilateral: Normal Inspection Nose: Discharge Oral Mucosa: Moist Neck: Normal ROM, Supple Chest: Symmetrical, No Deformity Cardiovascular: Rhythm Regular, No Murmur Respiratory: Wheezing (scattered. ), Other ((+) rhonchi sounding cough) Neurological/Psych: Oriented x3, Normal Speech, Normal Cognition ED Course And Treatment O2 Sat by Pulse Oximetry: 99 (RA) Pulse Ox Interpretation: Normal Medical Decision Making Medical Decision Making: Initial plan: -CXR Duoneb x2 Claritin Zithromax Prednisone HCG Urine ? infiltrate on wet read. zithromax given, nebs given. pt feeling better. d/c on claritin, zithromax and albuterol and prednisone Disposition Counseled Patient/Family Regarding: Studies Performed, Diagnosis, Need For Followup, Rx Given - Disposition Referrals: Jayden Camacho [Staff Provider] - Disposition: HOME/ ROUTINE Disposition Time: 13:09 Condition: IMPROVED Additional Instructions: Take all medications as prescribed, Follow up with your doctor in 1-2 days. Return for worse symptoms, Stop smoking. 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 - Scribe Statement The provider has reviewed the documentation as recorded by the Scribe (Yanci Nix) All medical record entries made by the Scribe were at my direction and personally dictated by me. I have reviewed the chart and agree that the record accurately reflects my personal performance of the history, physical exam, medical decision making, and the department course for this patient. I have also personally directed, reviewed, and agree with the discharge instructions and disposition.
[2019-04-08 13:18] VITALS: BP 109/66; PULSE 107; RESP 18
--- NOTE | 2019-04-08 17:43 | RAD ---
Date of service: 04/08/2019 HISTORY: kerrie sob COMPARISON: 03/06/2018 TECHNIQUE: Chest PA and lateral views FINDINGS: LUNGS: No active pulmonary disease. PLEURA: No significant pleural effusion identified. No pneumothorax apparent. CARDIOVASCULAR: No aortic atherosclerotic calcification present. Normal cardiac size. No pulmonary vascular congestion. OSSEOUS STRUCTURES: No significant abnormalities. VISUALIZED UPPER ABDOMEN: Normal. OTHER FINDINGS: None. IMPRESSION: No active disease.
[2019-04-09 21:34] VITALS: O2SAT 99
== END 2019-04-08 14:09 | disposition home or self-care (01) ==
LOC: C.ER 10:08
DX: J06.9 Acute upper respiratory infection, unspecified (principal); J45.909 Unspecified asthma, uncomplicated; I10 Essential (primary) hypertension; Z72.0 Tobacco use